=== PATIENT | female | born 1990 | race Caucasian/White ===

== ENCOUNTER → 2017-12-14 | Outpatient (CLI) | payer OTHER ==
[2017-12-14 17:23] LABS: EOS # 0.1 (0.04-0.40); EOS % 0.9 % (1.0-5.0); HEMATOCRIT 43.1 % (37.0-47.0); HEMOGLOBIN 14.4 g/dL (12.5-16.0); LYMPH# 1.9 (1.50-4.00); MEAN CELL VOLUME 89 fl (78-100); MEAN CORPUSCULAR HEMOGLOBIN 30 pg (27-31); MEAN CORPUSCULAR HGB CONC 33 g/dL (33-37); MEAN PLATELET VOLUME 10.5 fl (7.4-10.4); MONO # 0.4 (0.20-0.80); NEU # 4.3 (1.40-6.50); PLATELET COUNT 318 K/mm3 (130-400); RED BLOOD COUNT 4.85 M/mm3 (4.10-5.30); RED CELL DISTRIBUTION WIDTH 12.4 % (11.5-14.5); WHITE BLOOD COUNT 6.8 K/mm3 (4.8-10.8)
[2017-12-14 17:47] LABS: ALBUMIN 4.2 g/dL (3.5-5.0); CALCIUM 9.2 mg/dL (8.4-10.2); POTASSIUM 4.2 mmol/L (3.6-5.0); TOTAL BILIRUBIN 0.9 mg/dL (0.2-1.3); TOTAL PROTEIN 7.4 g/dL (6.3-8.2)
== END ==
LOC: LAB 17:01
PROVIDERS: Family Medicine
DX: Z01.419 Encounter for gynecological examination (general) (routine) without abnormal findings (principal)

== ENCOUNTER → 2018-11-08 | Outpatient (CLI) | payer OTHER ==
[2018-11-08 09:09] LABS: HEMATOCRIT 42.7 % (37.0-47.0); HEMOGLOBIN 14.1 g/dL (12.5-16.0); MEAN CELL VOLUME 92 fl (78-100); MEAN CORPUSCULAR HEMOGLOBIN 31 pg (27-31); MEAN CORPUSCULAR HGB CONC 33 g/dL (33-37); PLATELET COUNT 244 K/mm3 (130-400); RED BLOOD COUNT 4.62 M/mm3 (4.10-5.30); RED CELL DISTRIBUTION WIDTH 12.5 % (11.5-14.5); WHITE BLOOD COUNT 3.4 K/mm3 (4.8-10.8)
[2018-11-08 09:13] LABS: POTASSIUM 4.3 mmol/L (3.5-5.1)
[2018-11-08 09:14] LABS: CALCIUM 8.8 mg/dL (8.3-10.5)
[2018-11-08 09:16] LABS: TOTAL PROTEIN 7.2 g/dL (6.4-8.3)
[2018-11-08 09:17] LABS: TOTAL BILIRUBIN 1.1 mg/dL (0.2-1.2)
[2018-11-08 09:22] LABS: LYMPHOCYTE 49 % (20-51); MONOCYTE 12 % (3-10); NEUTROPHILS 33 % (42-75)
== END ==
LOC: LAB 08:56
PROVIDERS: Family Medicine
DX: Z01.419 Encounter for gynecological examination (general) (routine) without abnormal findings (principal); Z13.220 Encounter for screening for lipoid disorders; R53.83 Other fatigue

== ENCOUNTER → 2019-07-17 | Outpatient (CLI) | payer BC | LOC: LAB 08:18 | DX: R10.9 Unspecified abdominal pain (principal); R19.7 Diarrhea, unspecified ==

== ENCOUNTER → 2019-09-04 | Outpatient (CLI) | payer OTHER | LOC: LAB 09-03 14:16 | DX: Z20.828 Contact with and (suspected) exposure to other viral communicable diseases (principal) ==

== ENCOUNTER → 2019-10-01 | Outpatient (CLI) | payer BC ==
[2019-10-01 13:17] LABS: CLUE CELLS NOT OBSERVED (Not Observd)
== END ==
LOC: LAB 12:59
PROVIDERS: Nurse Practitioner
DX: N89.8 Other specified noninflammatory disorders of vagina (principal)
CPT/HCPCS: Q0111

== ENCOUNTER → 2020-01-14 | Outpatient (CLI) | payer OTHER | LOC: LAB 09:49 | DX: Z20.828 Contact with and (suspected) exposure to other viral communicable diseases (principal) ==